=== PATIENT | male | born 1985 | race Caucasian/White ===

== ENCOUNTER 2020-12-23 18:37 | Emergency (ER) | payer SELFPAY ==
[2020-12-23 18:42] VITALS: BP 133/86; PULSE 88; RESP 16; TEMP 36.9; O2SAT 96
--- NOTE | 2020-12-23 19:22 | ED.WOUNDLAC ---
HPI - Wound/Laceration General Chief Complaint: Wound/Laceration Stated Complaint: Top of head Lac Time Seen by Provider: 12/23/20 19:17 Source: patient and RN notes reviewed Mode of arrival: ambulatory Limitations: no limitations History of Present Illness HPI narrative: Patient presents today complaining of a laceration to the top of his head. It was sustained as prior to arrival when he closed the trunk on his car the latch on the trunk caught the top of his head. Denies loss of consciousness. He does report a headache that he currently rates 5/10. He is up-to-date on his tetanus vaccine. Related Data Home Medications Medication Instructions Recorded Confirmed ziggjzs-oru-ahmiy-tenof alafen 1 tablet PO DAILY 12/23/20 12/23/20 [Genvoya] Allergies Allergy/AdvReac Type Severity Reaction Status Date / Time No Known Allergies Allergy Verified 12/23/20 18:59 Review of Systems Review of Systems: CONSTITUTIONAL: Denies body aches, fever, chills, or sweats. EYES: Denies visual changes, redness, or discharge. ENT: Denies rhinorrhea, congestion, sore throat, or otalgia. CARDIOVASCULAR: Denies chest pain, palpitations, or edema. RESPIRATORY: Denies cough or dyspnea. GASTROINTESTINAL: Denies abdominal pain, nausea, vomiting, or diarrhea. GENITOURINARY: Denies dysuria or hematuria. SKIN: Denies rash, itching. + Scalp laceration MUSCULOSKELETAL: Denies back pain, joint pain, or myalgia. NEUROLOGIC: Denies headache, numbness, tingling, or weakness. PSYCH: Denies depression or anxiety. PMFSH Comments At time of signature, I have reviewed and agree with nursing past medical, surgical, social and family history unless otherwise noted. Please see nursing chart for further information. There is no relevant family history pertinent to the presenting complaint Exam Narrative: GENERAL: Well-appearing, well-nourished, and in no acute distress. HEAD: Normocephalic, atraumatic. EYES: EOMI. PERRL. No redness or drainage. Conjunctivae normal. ENT: Mucous membranes pink and moist. NECK: Normal AROM. Supple. No lymphadenopathy. CHEST: No respiratory distress. EXTREMITIES: Normal range of motion. No edema. SKIN: Warm, dry, no rash. Capillary refill normal. Normal skin turgor. 2.5cm partial thickness linear laceration to the right anterior scalp. No active bleeding. NEURO: No focal deficits. Alert and oriented x3. Gait steady. PSYCH: Normal affect. No signs of depression or anxiety. Course Vital Signs Vital signs: Vital Signs Temperature 98.5 F 12/23/20 18:42 Pulse Rate 88 12/23/20 18:42 Respiratory Rate 16 12/23/20 18:42 Blood Pressure 133/86 12/23/20 18:42 Pulse Oximetry 96 12/23/20 18:42 Temperature 98.5 F 12/23/20 18:42 Pulse Rate 88 12/23/20 18:42 Respiratory Rate 16 12/23/20 18:42 Blood Pressure 133/86 12/23/20 18:42 Pulse Oximetry 96 12/23/20 18:42 Reviewed. Pt has been instructed to follow up with his PCP regarding his elevated blood pressure today. Procedures Laceration Laceration 1: Date: 12/23/20 Time: 19:22 Site: scalp Size (cm): 2.5 Description: linear Depth: simple, single layer Local Anesthetic: none Pre-repair: wound explored and irrigated ====== Skin Level ====== Skin layer closed with: aye Number of sutures: 3 ====== Subcutaneous Layer ====== ====== Muscle Layer ====== ====== Tendon Layer ====== MDM - Wound/Laceration Differential Diagnosis Differential diagnosis: Likely laceration, abrasion and avulsion of skin Critical Care Time Critical Care Time Critical Care Time: No Discharge Plan Discharge Clinical Impression: Laceration of scalp Qualifiers: Encounter type: initial encounter Qualified Code(s): S01.01XA - Laceration without foreign body of scalp, initial encounter Patient Disposition: Home, Self-Care Condition: Stable Instructions: St
== END 2020-12-23 19:30 | disposition home or self-care (01) ==
PROVIDERS: Emergency Provider Nurse Practitioner
DX: S01.01XA Laceration without foreign body of scalp, initial encounter (principal); W45.8XXA Other foreign body or object entering through skin, initial encounter; W22.8XXA Striking against or struck by other objects, initial encounter
CPT/HCPCS: 12001; 99202; G0463

== ENCOUNTER 2022-04-08 08:19 | Emergency (ER) | payer SELFPAY ==
--- NOTE | 2022-04-08 08:21 | ED.DENTAL ---
HPI - Dental/Oral General Chief complaint: Dental/Oral Stated complaint: Toothace Time Seen by Provider: 04/08/22 08:20 Source: patient Mode of arrival: ambulatory Limitations: no limitations History of Present Illness HPI Narrative: Mr. Mojica is a 28-year-old male patient presenting to the clinic today with complaints of a dental pain X1 week. He reports this has been going on for years however this been worse this past week. Patient reports that he cannot get into a oral surgeon-dentist until September. Related Data Home Medications Medication Instructions Recorded Confirmed elviteg 150 mg-cob 150 mg-emtricit 1 tablet PO DAILY 12/23/20 04/08/22 200 mg-tenofo alafenam 10 mg tablet (Genvoya) Allergies Allergy/AdvReac Type Severity Reaction Status Date / Time No Known Allergies Allergy Verified 04/08/22 08:36 Review of Systems Review of Systems: Pertinent positives per HPI. Patient denies any fever, chills, rash, headache, visual changes, dizziness, cough, runny nose, sore throat, shortness of breath, chest pain, palpitations, nausea, vomiting, diarrhea, constipation, abdominal pain, or any urinary issues. PMFSH Comments At the time of my signature, I reviewed and agree with the nursing past medical, surgical, social, and family history. There is no relevant family history pertinent to the patient complaint. Exam Narrative: General: Well-developed, well nourished, in no apparent distress Head: Normocephalic, atraumatic Eyes: Pupils equally round and reactive to light bilaterally, EOM intact, sclera and conjunctive clear, no discharge, lids normal Ears: TMs intact and clear, ear canals clear, no drainage, grossly hearing normal. Nose: Nares patent, no discharge, no inflammation, no sinus tenderness. Mouth: Oropharynx without lesions or masses, poor dentition, MMM. crowding of the posterior lower molar with decay and inflammation around the gums Neck: Supple, trachea midline, no enlargement of anterior or posterior cervical nodes, no thyroid masses or goiter palpable. Cardio: Regular rate and rhythm, s1 and s2 normal, no murmur appreciated. Resp: Clear to auscultation bilaterally anteriorly and posteriorly, no rhonchi, rales, wheezing or rubs Course Course Emergency Course: Portions of this record may have been created with voice recognition software. Level of Care: Express Care Visit Vital Signs Vital signs: Vital Signs Temperature 37.1 C 04/08/22 08:24 Pulse Rate 71 04/08/22 08:24 Respiratory Rate 16 04/08/22 08:24 Blood Pressure 121/76 04/08/22 08:24 Pulse Oximetry 98 04/08/22 08:24 Oxygen Delivery Room Air 04/08/22 08:24 Temperature 37.1 C 04/08/22 08:24 Pulse Rate 71 04/08/22 08:24 Respiratory Rate 16 04/08/22 08:24 Blood Pressure 121/76 04/08/22 08:24 Pulse Oximetry 98 04/08/22 08:24 Oxygen Delivery Room Air 04/08/22 08:24 Vital signs reviewed MDM - Dental/Oral MDM Narrative Medical decision making narrative: At the time of visit patient is resting comfortably on the exam table. I suspect the patient may have an impacted wisdom tooth that is causing him discomfort today although it appears that he has an infection. Will send in prescription for amoxicillin and ibuprofen. Supportive measures were discussed with the patient he voiced understanding of discharge instructions and agrees to treatment plan. Differential Diagnosis Differential diagnosis: Likely gingival abscess, dental caries, toothache and dental abscess Discharge Plan Discharge Clinical Impression: Toothache Patient Disposition: Home, Self-Care Condition: Stable Instructions: Antibiotic Form, Toothache (ED) Additional Instructions: May take Tylenol or ibuprofen as needed for pain Take amoxicillin as prescribed Follow-up with your dentist as soon as possible Go to the emergency room if you develop high fever not controlled by Tylenol or Motrin, leth
[2022-04-08 08:24] VITALS: BP 121/76; PULSE 71; RESP 16; TEMP 37.1; O2SAT 98
== END 2022-04-08 08:52 | disposition home or self-care (01) ==
PROVIDERS: Emergency Provider Nurse Practitioner Family; PCP Family Medicine
DX: K08.89 Other specified disorders of teeth and supporting structures (principal); Z21 Asymptomatic human immunodeficiency virus [HIV] infection status
CPT/HCPCS: 99213; G0463